=== PATIENT | male | born 1995 | race Hispanic/Latino ===

== ENCOUNTER 2019-10-22 14:43 | Emergency (ER) | payer SELFPAY | END 2019-10-22 15:48 | disposition left against medical advice (07) | LOC: MADERS 14:43 | DX: Z53.21 Procedure and treatment not carried out due to patient leaving prior to being seen by health care provider (principal) ==

== ENCOUNTER 2019-10-22 14:57 | Emergency (ER) | payer SELFPAY | END 2019-10-22 15:48 | disposition left against medical advice (07) | LOC: MADERS 14:57 | DX: Z53.21 Procedure and treatment not carried out due to patient leaving prior to being seen by health care provider (principal) ==